=== PATIENT | female | born 1980 | race American Indian/Alaskan Native ===

== ENCOUNTER 2016-08-02 17:24 | Emergency (ER) | payer MEDICAID ==
[2016-08-02 18:04] LABS: Basophils % (Auto) 0.7 % (0.0-1.8); Eosinophils % (Auto) 1.2 % (0.0-4.3); Hematocrit 40.8 % (30.3-42.9); Hemoglobin 13.5 gm/dl (10.1-14.3); Mean Corpuscular HGB Conc 33 % (30-34); Mean Corpuscular Hemoglobin 28 pg (28-32); Mean Corpuscular Volume 85 fl (79-97); Platelet Count 181 K/mm3 (140-440); Red Blood Count 4.78 M/mm3 (3.65-5.03); Red Cell Distribution Width 14.1 % (13.2-15.2); White Blood Count 7.9 K/mm3 (4.5-11.0)
[2016-08-02 18:21] LABS: Alanine Aminotransferase 10 units/L (7-56); Albumin 3.8 g/dL (3.9-5); Albumin/Globulin Ratio 0.9 %; Alkaline Phosphatase 65 units/L (35-129); Anion Gap 21 mmol/L; BUN/Creatinine Ratio 15.71; Blood Urea Nitrogen 11 mg/dL (7-17); Calcium 9.2 mg/dL (8.4-10.2); Carbon Dioxide 18 mmol/L (22-30); Chloride 100.3 mmol/L (98-107); Glucose 93 mg/dL (65-100); Lipase 30 units/L (13-60); Potassium 3.6 mmol/L (3.6-5.0); Sodium 136 mmol/L (137-145); Total Protein 8.2 g/dL (6.3-8.2)
[2016-08-02 18:33] LABS: Bacteria,Urine 1+ /HPF (Negative); Bilirubin,Urine NEG (Negative); Blood,Urine NEG (Negative); Ketones,Urine 20 mg/dL (Negative); Leukocyte Esterase,Urine NEG (Negative); Mucus,Urine 2+ /HPF; Nitrite,Urine NEG (Negative)
[2016-08-02 18:39] LABS: Protein,Urine >500 mg/dL (Negative)
[2016-08-02] MEDS ORDERED: ZOFRAN IV ONE (21:13)
[2016-08-02] MEDS ORDERED: TORADOL IV ONE (21:13)
--- NOTE | 2016-08-02 21:34 | Emergency Department Report ---
ED Abdominal Pain HPI - General Chief Complaint: Abdominal Pain Stated Complaint: STOMACH PAIN/BACK PAIN Time Seen by Provider: 08/02/16 20:59 Source: patient Mode of arrival: Ambulatory Limitations: No Limitations - History of Present Illness Initial Comments: 36-year-old female with a past medical history hypertension and previous C- section presents to the hospital complaining of lower abdominal pain and mid back pain intermittently 2 weeks. Patient expresses concern that she might be . She has had intermittent lower abdominal pain described as sharp in nature, intermittent, rated a 4/10 intensity. Worse on the left sided worse with palpation. No alleviating factors reported. Patient also states she is having daily nausea vomiting with difficulty tolerating food intake. She is able tolerate liquids. Patient also has mid back pain is worse with movement. No reports of fever, diarrhea, melena, hematochezia, dysuria, vaginal discharge. Patient sexually active one partner 5 years and does not use condoms. She has an appointment with her MUSIC COORDINATOR doctor scheduled for this Wednesday the . - Related Data Previous Rx's Medication Instructions Recorded Last Taken Type HYDROcodone/APAP 5-325 [[place] 1 each PO Q6HR PRN #14 tablet 09/09/13 Unknown Rx 5/325] Ibuprofen [Motrin 800 MG tab] 800 mg PO Q8H #30 tablet 09/09/13 Unknown Rx Acetaminophen/Codeine 1 tab PO Q6H PRN #25 tab 03/26/14 Unknown Rx [Acetaminophen-Codeine #3 TAB] Amoxicillin [Amoxicillin TAB] 875 mg PO BID #20 tablet 11/02/15 Unknown Rx predniSONE [Deltasone] 50 mg PO QAM #5 tablet 11/02/15 Unknown Rx Ibuprofen [Motrin] 800 mg PO Q8HR PRN #30 tablet 08/02/16 Unknown Rx Ondansetron [Zofran Odt] 4 mg PO Q8HR PRN #20 tab.rapdis 08/02/16 Unknown Rx traMADol [Ultram 50 MG tab] 50 mg PO Q6HR PRN #20 tablet 08/02/16 Unknown Rx Allergies Allergy/AdvReac Type Severity Reaction Status Date / Time No Known Allergies Allergy Unverified 04/24/13 09:19 ED Review of Systems ROS: Stated complaint: STOMACH PAIN/BACK PAIN Other details as noted in HPI Comment: All other systems reviewed and negative Other: Constitutional: No fevers chills Eyes: No eye pain visual changes ENT: No ear pain or throat pain Neck: Denies pain Respiratory: Denies cough wheezing shortness of breath Cardiovascular: Denies chest pain, palpitations, syncope GI: as per hpi : Denies dysuria Musculoskeletal: as per hpi Skin: Denies rash, lesions, erythema Neurologic: Denies headache, numbness, weakness Psychiatric: Denies suicidal ideation, hallucinations ED Past Medical Hx - Past Medical History Previous Medical History?: Yes Hx Hypertension: Yes - Surgical History Past Surgical History?: Yes Additional Surgical History: - Social History Smoking Status: Current Every Day Smoker - Medications Home Medications: Home Medications Medication Instructions Recorded Confirmed Last Taken Type HYDROcodone/APAP 5-325 [[place] 1 each PO Q6HR PRN #14 tablet 09/09/13 Unknown Rx 5/325] Ibuprofen [Motrin 800 MG tab] 800 mg PO Q8H #30 tablet 09/09/13 Unknown Rx Acetaminophen/Codeine 1 tab PO Q6H PRN #25 tab 03/26/14 Unknown Rx [Acetaminophen-Codeine #3 TAB] Amoxicillin [Amoxicillin TAB] 875 mg PO BID #20 tablet 11/02/15 Unknown Rx predniSONE [Deltasone] 50 mg PO QAM #5 tablet 11/02/15 Unknown Rx Ibuprofen [Motrin] 800 mg PO Q8HR PRN #30 tablet 08/02/16 Unknown Rx Ondansetron [Zofran Odt] 4 mg PO Q8HR PRN #20 tab.rapdis 08/02/16 Unknown Rx traMADol [Ultram 50 MG tab] 50 mg PO Q6HR PRN #20 tablet 08/02/16 Unknown Rx ED Physical Exam - General Limitations: No Limitations - Other Other exam information: General: No limitations, patient is alert in no acute distress Head exam: Atraumatic, normocephalic Eyes exam: Normal appearance, pupils equal reactive to light, extraocular movements intact ENT: Moist mucous membrane, normal oropharynx Neck exam: Normal inspection, full range of motion, no meningismus nontender Respiratory exam: Clear to auscultation bilateral, no wheezes, rales, crackles Cardiovascular: Normal rate and rhythm, normal heart sounds Abdomen: Soft, nondistended, and mild llq tenderness , with normal bowel sounds , no rebound, or guarding Extremity: Full range of motion normal inspection no deformity Back: Normal Inspection, full range of motion, tenderness to b/l lower paraspinal muscles and left post thoracic area Neurologic: Alert, oriented x3, cranial nerves intact, no motor or sensory deficit Psychiatric: normal affect, normal mood Skin: Warm, dry, intact ED Course Vital Signs 08/02/16 17:29 Temperature 98.8 F Pulse Rate 79 Respiratory 20 Rate Blood Pressure 141/81 O2 Sat by Pulse 100 Oximetry - Reevaluation(s) Reevaluation #1: 08/02/16 21:33 Offered to perform a vaginal exam on patient. She initially agreed but then changed her mind stating she would use goes to her MUSIC COORDINATOR as scheduled this Wednesday. Also offered pain and nausea medication due to IV since she has one in herhand. Patient initially agreed but then when nurse tried to get the medication stating she did not want any medication and just wants to go home. Patient also refused IV hydration and states she will eat and drink when she gets home ED Medical Decision Making - Lab Data Result diagrams: 08/02/16 17:38 08/02/16 17:38 Lab Results 08/02/16 08/02/16 08/02/16 Range/Units 17:38 17:38 17:38 WBC 7.9 (4.5-11.0) K/mm3 RBC 4.78 (3.65-5.03) M/mm3 Hgb 13.5 (10.1-14.3) gm/dl Hct 40.8 (30.3-42.9) % MCV 85 (79-97) fl MCH 28 (28-32) pg MCHC 33 (30-34) % RDW 14.1 (13.2-15.2) % Plt Count 181 (140-440) K/mm3 Lymph % (Auto) 37.3 H (13.4-35.0) % [place] % (Auto) 5.4 (0.0-7.3) % Eos % (Auto) 1.2 (0.0-4.3) % Baso % (Auto) 0.7 (0.0-1.8) % Lymph # 2.9 (1.2-5.4) K/mm3 [place] # 0.4 (0.0-0.8) K/mm3 Eos # 0.1 (0.0-0.4) K/mm3 Baso # 0.1 (0.0-0.1) K/mm3 Seg Neutrophils % 55.4 (40.0-70.0) % Seg Neutrophils # 4.4 (1.8-7.7) K/mm3 Sodium 136 L (137-145) mmol/L Potassium 3.6 (3.6-5.0) mmol/L Chloride 100.3 (98-107) mmol/L Carbon Dioxide 18 L (22-30) mmol/L Anion Gap 21 mmol/L BUN 11 (7-17) mg/dL Creatinine 0.7 (0.7-1.2) mg/dL Estimated GFR > 60 ml/min BUN/Creatinine Ratio 15.71 % Glucose 93 (65-100) mg/dL Calcium 9.2 (8.4-10.2) mg/dL Total Bilirubin 0.80 (0.1-1.2) mg/dL AST 15 (5-40) units/L ALT 10 (7-56) units/L Alkaline Phosphatase 65 (35-129) units/L Total Protein 8.2 (6.3-8.2) g/dL Albumin 3.8 L (3.9-5) g/dL Albumin/Globulin Ratio 0.9 % Lipase 30 (13-60) units/L HCG, Quant < 2 (0-4) mIU/mL Urine Color (Yellow) Urine Turbidity (Clear) Urine pH (5.0-7.0) Ur Specific [employer] (1.003-1.030) Urine Protein (Negative) mg/dL Urine Glucose (UA) (Negative) mg/dL Urine Ketones (Negative) mg/dL Urine Blood (Negative) Urine Nitrite (Negative) Urine Bilirubin (Negative) Urine Urobilinogen (<2.0) mg/dL Ur Leukocyte Esterase (Negative) Urine WBC (Auto) (0.0-6.0) /HPF Urine RBC (Auto) (0.0-6.0) /HPF U Epithel Cells (Auto) (0-13.0) /HPF Urine Bacteria (Auto) (Negative) /HPF Urine Mucus /HPF Urine HCG, Qual (Negative) 08/02/16 Range/Units 17:52 WBC (4.5-11.0) K/mm3 RBC (3.65-5.03) M/mm3 Hgb (10.1-14.3) gm/dl Hct (30.3-42.9) % MCV (79-97) fl MCH (28-32) pg MCHC (30-34) % RDW (13.2-15.2) % Plt Count (140-440) K/mm3 Lymph % (Auto) (13.4-35.0) % [place] % (Auto) (0.0-7.3) % Eos % (Auto) (0.0-4.3) % Baso % (Auto) (0.0-1.8) % Lymph # (1.2-5.4) K/mm3 [place] # (0.0-0.8) K/mm3 Eos # (0.0-0.4) K/mm3 Baso # (0.0-0.1) K/mm3 Seg Neutrophils % (40.0-70.0) % Seg Neutrophils # (1.8-7.7) K/mm3 Sodium (137-145) mmol/L Potassium (3.6-5.0) mmol/L Chloride (98-107) mmol/L Carbon Dioxide (22-30) mmol/L Anion Gap mmol/L BUN (7-17) mg/dL Creatinine (0.7-1.2) mg/dL Estimated GFR ml/min BUN/Creatinine Ratio % Glucose (65-100) mg/dL Calcium (8.4-10.2) mg/dL Total Bilirubin (0.1-1.2) mg/dL AST (5-40) units/L ALT (7-56) units/L Alkaline Phosphatase (35-129) units/L Total Protein (6.3-8.2) g/dL Albumin (3.9-5) g/dL Albumin/Globulin Ratio % Lipase (13-60) units/L HCG, Quant (0-4) mIU/mL Urine Color [place] (Yellow) Urine Turbidity Clear (Clear) Urine pH 5.0 (5.0-7.0) Ur Specific [employer] 1.031 H (1.003-1.030) Urine Protein >500 (Negative) mg/dL Urine Glucose (UA) Neg (Negative) mg/dL Urine Ketones 20 (Negative) mg/dL Urine Blood Neg (Negative) Urine Nitrite Neg (Negative) Urine Bilirubin Neg (Negative) Urine Urobilinogen 2.0 (<2.0) mg/dL Ur Leukocyte Esterase Neg (Negative) Urine WBC (Auto) 2.0 (0.0-6.0) /HPF Urine RBC (Auto) 6.0 (0.0-6.0) /HPF U Epithel Cells (Auto) 14.0 H (0-13.0) /HPF Urine Bacteria (Auto) 1+ (Negative) /HPF Urine Mucus 2+ /HPF Urine HCG, Qual Negative (Negative) - Medical Decision Making Patient has no significant lab abnormalities exception of sodium low bicarbonate secondary to dehydration given her elevated ketones in the urine and high specific gravity. Patient declined offer for IV hydration. She declined offer for pelvic exam, nausea medication, and pain medication prior to discharge. Patient has an appointment this Wednesday in 2 days with her MUSIC COORDINATOR and she was encouraged to follow-up with her MUSIC COORDINATOR doctor. She is provided a copy of her laboratory findings today to take to her physician for follow-up - Differential Diagnosis , ovarian cyst, vaginitis, cervicitis, UTI, renal colic Critical Care Time: No Critical care attestation.: If time is entered above; I have spent that time in minutes in the direct care of this critically ill patient, excluding procedure time. ED Disposition Clinical Impression: Pelvic pain, Nausea and vomiting, Dehydration Disposition: DISCHARGED TO HOME OR SELFCARE Is pt being admited?: No Does the pt Need Aspirin: No Condition: Stable Instructions: Acute Nausea and Vomiting (ED), Abdominal Pain (ED) Additional Instructions: Take the medication as prescribed. Follow-up with his doctor as scheduled this Wednesday for further pelvic examination. Return if symptoms worsen. Prescriptions: Ibuprofen [Motrin] 800 mg PO Q8HR PRN #30 tablet PRN Reason: Pain Ondansetron [Zofran Odt] 4 mg PO Q8HR PRN #20 tab.rapdis PRN Reason: Nausea And Vomiting traMADol [Ultram 50 MG tab] 50 mg PO Q6HR PRN #20 tablet PRN Reason: Pain Referrals: KASSI IYER MD [Primary Care Provider] - 3-5 Days your, statistics intern [Other] - 08/05/16 (as scheduled) Time of Disposition: 21:37
[2016-08-02 21:47] VITALS: BP 133/75
== END 2016-08-02 21:47 | disposition home or self-care (01) ==
LOC: ED 17:24
DX: R10.2 Pelvic and perineal pain (principal); R11.2 Nausea with vomiting, unspecified; E86.0 Dehydration; I10 Essential (primary) hypertension; F17.200 Nicotine dependence, unspecified, uncomplicated
CPT/HCPCS: 36415; 80053; 81001; 81025; 83690; 84702; 85025; 99283

== ENCOUNTER 2016-09-15 03:39 | Emergency (ER) | payer MEDICAID ==
[2016-09-15 04:34] VITALS: BP 124/63
[2016-09-15 05:24] LABS: Basophils % (Auto) 0.4 % (0.0-1.8); Eosinophils % (Auto) 0.9 % (0.0-4.3); Hematocrit 37.6 % (30.3-42.9); Hemoglobin 12.5 gm/dl (10.1-14.3); Mean Corpuscular HGB Conc 33 % (30-34); Mean Corpuscular Hemoglobin 29 pg (28-32); Mean Corpuscular Volume 86 fl (79-97); Platelet Count 200 K/mm3 (140-440); Red Blood Count 4.37 M/mm3 (3.65-5.03); Red Cell Distribution Width 14.1 % (13.2-15.2); White Blood Count 9.6 K/mm3 (4.5-11.0)
[2016-09-15 05:36] LABS: Alanine Aminotransferase 8 units/L (7-56); Albumin 3.5 g/dL (3.9-5); Albumin/Globulin Ratio 0.9 %; Alkaline Phosphatase 57 units/L (35-129); Anion Gap 18 mmol/L; BUN/Creatinine Ratio 17.14; Blood Urea Nitrogen 12 mg/dL (7-17); Calcium 9.5 mg/dL (8.4-10.2); Carbon Dioxide 20 mmol/L (22-30); Chloride 99.2 mmol/L (98-107); Glucose 102 mg/dL (65-100); Lipase 28 units/L (13-60); Potassium 4.2 mmol/L (3.6-5.0); Sodium 133 mmol/L (137-145); Total Protein 7.6 g/dL (6.3-8.2)
--- NOTE | 2016-09-15 08:21 | Ultrasound Report ---
ULTRASOUND OB LESS THAN 14 WEEKS ULTRASOUND OB TRANSVAGINAL HISTORY: Abdominal pain during , positive urine test. TECHNIQUE: Transabdominal and transvaginal ultrasound with doppler interrogation. No comparison. The uterus measures 10 x 6 x 6 cm. No uterine masses appreciated. The endometrial stripe measures 1.3 cm. A small gestational sac is suspected in the uterine fundus region with average diameter measuring 9.5 mm. This correlates with a 5 week, 5 day . Estimated due date is May 13, 2017. No convincing pole or yolk sac or heart tones are detected at this time. The right ovary measures 3.7 x 1.5 x 2.6 cm. The left ovary measures 2.7 x 1.5 x 1.9 cm. No adnexal cyst or mass. No pelvic fluid collection. IMPRESSION: Probable early normal intrauterine as outlined above. No acute abnormality is appreciated. Followup is recommended.
[2016-09-15 09:16] LABS: Bilirubin,Urine NEG (Negative); Blood,Urine NEG (Negative); Ketones,Urine NEG (Negative); Leukocyte Esterase,Urine NEG (Negative); Mucus,Urine FEW /HPF; Nitrite,Urine NEG (Negative); Urobilinogen,Urine < 2.0 mg/dL (<2.0); WBC,Urine < 1.0 /HPF (0.0-6.0)
--- NOTE | 2016-09-17 01:22 | ED Elopement Review ---
ED Pt Elopement review - Results review Lab results: Laboratory Tests 09/15/16 09/15/16 09/15/16 04:42 04:42 04:42 WBC 9.6 RBC 4.37 Hgb 12.5 Hct 37.6 MCV 86 MCH 29 MCHC 33 RDW 14.1 Plt Count 200 Lymph % (Auto) 44.3 H [place] % (Auto) 5.5 Eos % (Auto) 0.9 Baso % (Auto) 0.4 Lymph # 4.3 [place] # 0.5 Eos # 0.1 Baso # 0.0 Seg Neutrophils % 48.9 Seg Neutrophils # 4.7 Sodium 133 L Potassium 4.2 Chloride 99.2 Carbon Dioxide 20 L Anion Gap 18 BUN 12 Creatinine 0.7 Estimated GFR > 60 BUN/Creatinine Ratio 17.14 Glucose 102 H Calcium 9.5 Total Bilirubin 0.30 AST 12 ALT 8 Alkaline Phosphatase 57 Total Protein 7.6 Albumin 3.5 L Albumin/Globulin Ratio 0.9 Lipase 28 HCG, Qual Positive HCG, Quant Urine Color Urine Turbidity Urine pH Ur Specific [place] Urine Protein Urine Glucose (UA) Urine Ketones Urine Blood Urine Nitrite Urine Bilirubin Urine Urobilinogen Ur Leukocyte Esterase Urine WBC (Auto) Urine RBC (Auto) U Epithel Cells (Auto) Urine Mucus 09/15/16 09/15/16 04:42 08:11 WBC RBC Hgb Hct MCV MCH MCHC RDW Plt Count Lymph % (Auto) [place] % (Auto) Eos % (Auto) Baso % (Auto) Lymph # [place] # Eos # Baso # Seg Neutrophils % Seg Neutrophils # Sodium Potassium Chloride Carbon Dioxide Anion Gap BUN Creatinine Estimated GFR BUN/Creatinine Ratio Glucose Calcium Total Bilirubin AST ALT Alkaline Phosphatase Total Protein Albumin Albumin/Globulin Ratio Lipase HCG, Qual HCG, Quant 5000 H Urine Color Yellow Urine Turbidity Clear Urine pH 6.0 Ur Specific [place] 1.017 Urine Protein 100 mg/dl Urine Glucose (UA) Neg Urine Ketones Neg Urine Blood Neg Urine Nitrite Neg Urine Bilirubin Neg Urine Urobilinogen < 2.0 Ur Leukocyte Esterase Neg Urine WBC (Auto) < 1.0 Urine RBC (Auto) 1.0 U Epithel Cells (Auto) 1.0 Urine Mucus Few - Call Back decision Pt Call Back Decision: Pt to F/U with PMD (patient is , and needs to follow-up with an DIVING JUDGE doctor to start/initiate care.)
== END 2016-09-15 09:38 | disposition left against medical advice (07) ==
LOC: ED 03:39
DX: O26.891 Other specified pregnancy related conditions, first trimester (principal); R10.2 Pelvic and perineal pain; Z53.21 Procedure and treatment not carried out due to patient leaving prior to being seen by health care provider; Z3A.01 Less than 8 weeks gestation of pregnancy
CPT/HCPCS: 36415; 76801; 76817; 80053; 81001; 83690; 84702; 84703; 85025

== ENCOUNTER 2017-07-26 11:08 | Emergency (ER) | payer MEDICAID ==
[2017-07-26 11:56] VITALS: BP 129/87
[2017-07-26 12:45] LABS: Bilirubin,Urine NEG (Negative); Blood,Urine NEG (Negative); Color,Urine Yellow (Yellow); Mucus,Urine FEW /HPF; Urobilinogen,Urine < 2.0 mg/dL (<2.0)
[2017-07-26 12:48] LABS: HCG Qualitative,Urine Negative (Negative); Protein,Urine >500 mg/dL (Negative)
[2017-07-26 12:50] LABS: Basophils % (Auto) 0.6 % (0.0-1.8); Eosinophils % (Auto) 0.4 % (0.0-4.3); Hematocrit 38.8 % (30.3-42.9); Hemoglobin 13.6 gm/dl (10.1-14.3); Lymphocytes # (Auto) 3.1 K/mm3 (1.2-5.4); Lymphocytes % (Auto) 42.4 % (13.4-35.0); Mean Corpuscular HGB Conc 35 % (30-34); Mean Corpuscular Hemoglobin 29 pg (28-32); Mean Corpuscular Volume 83 fl (79-97); Monocytes # (Auto) 0.4 K/mm3 (0.0-0.8); Platelet Count 208 K/mm3 (140-440)
--- NOTE | 2017-07-26 13:00 | Emergency Department Report ---
Blank Doc - Documentation Documentation: 37-year-old female with past surgical history of 2 and tubal ligation presents to the hospital with abdominal pain 1 day. Patient states that she has pain in the upper bilateral part of her abdomen which feels like getting punched repeatedly in the stomach. Worsening palpation. No relieving factors. Patient denies nausea, vomiting, fever, dysuria, melena, hematochezia , or hematuria. Denies previous episodes of similar pain in the past. Exam: lungs cta cv: rrr abd: generalized tenderness greatest at ruq, rlq labs pending ct abd/IV contrast order meds for pain korin lepe midlevel to follow
[2017-07-26] MEDS ORDERED: ZOFRAN ODT PO ONE (13:01)
[2017-07-26] MEDS ORDERED: NORCO 5/325 PO ONE (13:01)
--- NOTE | 2017-07-26 13:02 | Emergency Department Report ---
ED Abdominal Pain HPI - General Chief Complaint: Abdominal Pain Stated Complaint: STOMACH PAIN Time Seen by Provider: 07/26/17 12:51 Source: patient, family Mode of arrival: Ambulatory Limitations: No Limitations - History of Present Illness Initial Comments: 37-year-old female with past surgical history of 2 and tubal ligation presents to the hospital with abdominal pain 1 day. Patient states that she has pain in the upper bilateral part of her abdomen which feels like getting punched repeatedly in the stomach. Worsening palpation. No relieving factors. Patient denies nausea, vomiting, fever, dysuria, melena, hematochezia , or hematuria. Denies previous episodes of similar pain in the past. MD Complaint: abdominal pain -: This morning Location: LUQ, RUQ Radiation: none Migration to: no migration Severity: moderate Severity scale (0 -10): 5 Quality: stabbing Consistency: constant Improves With: nothing Worsens With: other (palpation) Context: other (unknown) Associated Symptoms: denies: nausea, vomiting, diarrhea, fever, chills, constipation, dysuria, hematemesis, hematochezia, melena, hematuria, anorexia, syncope - Related Data LMP (females 10-50): other (2017) Home Medications Medication Instructions Recorded Confirmed Last Taken Pnv No.95/Ferrous Fum/Folic AC 1 tab PO QDAY 04/30/17 04/30/17 04/29/17 09:00 [ Vitamins Tablet] Previous Rx's Medication Instructions Recorded Last Taken Type HYDROcodone/APAP 5-325 [[place] 1 each PO Q6HR PRN #14 tablet 09/09/13 Unknown Rx 5/325] Naproxen 500 mg PO Q12H PRN #12 tablet 07/26/17 Unknown Rx Ondansetron [Zofran ODT TAB] 4 mg PO Q8HR PRN #12 tab.rapdis 07/26/17 Unknown Rx Allergies Allergy/AdvReac Type Severity Reaction Status Date / Time No Known Allergies Allergy Unverified 04/24/13 09:19 ED Review of Systems ROS: Stated complaint: STOMACH PAIN Other details as noted in HPI Constitutional: denies: chills, fever, weakness Eyes: denies: eye pain, eye discharge, vision change ENT: denies: ear pain, throat pain, congestion Respiratory: denies: cough, shortness of breath, SOB with exertion, SOB at rest , stridor, wheezing Cardiovascular: denies: chest pain, palpitations, edema, syncope, paroxysmal nocturnal dyspnea Gastrointestinal: abdominal pain. denies: nausea, vomiting, diarrhea, constipation, hematemesis, melena, hematochezia Genitourinary: denies: urgency, dysuria, discharge Musculoskeletal: denies: back pain, joint swelling, arthralgia Skin: denies: rash, lesions Neurological: denies: headache, weakness, numbness, paresthesias, confusion, abnormal gait, vertigo ED Past Medical Hx - Past Medical History Previous Medical History?: Yes Hx Hypertension: No Hx Congestive Heart Failure: No Hx Diabetes: No Hx Deep Vein Thrombosis: No Hx Renal Disease: No Hx Sickle Cell Disease: No Hx Seizures: No Hx Asthma: Yes Hx COPD: No Hx HIV: No Additional medical history: stillbirth - Surgical History Past Surgical History?: Yes Additional Surgical History: x 2, Tubaligation - Family History Family history: hypertension - Social History Smoking Status: Current Every Day Smoker Substance Use Type: Alcohol Other Social History: and lives his family - Medications Home Medications: Home Medications Medication Instructions Recorded Confirmed Last Taken Type HYDROcodone/APAP 5-325 [[place] 1 each PO Q6HR PRN #14 tablet 09/09/13 04/30/17 Unknown Rx 5/325] Pnv No.95/Ferrous Fum/Folic AC 1 tab PO QDAY 04/30/17 04/30/17 04/29/17 09:00 History [ Vitamins Tablet] Naproxen 500 mg PO Q12H PRN #12 tablet 07/26/17 Unknown Rx Ondansetron [Zofran ODT TAB] 4 mg PO Q8HR PRN #12 tab.rapdis 07/26/17 Unknown Rx ED Physical Exam - General General appearance: alert, in no apparent distress - Head Head exam: Present: atraumatic, normocephalic, normal inspection - Eye Eye exam: Present: normal appearance, PERRL, EOMI Pupils: Present: normal accommodation - ENT ENT exam: Present: normal exam, normal orophraynx, mucous membranes moist - Neck Neck exam: Present: normal inspection, full ROM, other (no C-spine tenderness). Absent: tenderness, lymphadenopathy - Respiratory Respiratory exam: Present: normal lung sounds bilaterally. Absent: respiratory distress, wheezes, rales, rhonchi, stridor, chest wall tenderness, accessory muscle use, decreased breath sounds, prolonged expiratory - Cardiovascular Cardiovascular Exam: Present: regular rate, normal rhythm, normal heart sounds. Absent: systolic murmur, diastolic murmur - GI/Abdominal GI/Abdominal exam: Present: soft, tenderness (generalized), normal bowel sounds. Absent: distended, guarding, rebound, rigid, organomegaly, mass, bruit , pulsatile mass, hernia - Extremities Exam Extremities exam: Present: normal inspection, full ROM, normal capillary refill , other (no clubbing, cyanosis or edema. Pulses + extremities and no neurovascular compromise). Absent: tenderness, pedal edema, joint swelling, calf tenderness - Back Exam Back exam: Present: normal inspection, full ROM, other (ambulates without any difficulties). Absent: tenderness, CVA tenderness (R), CVA tenderness (L), muscle spasm, paraspinal tenderness, vertebral tenderness, rash noted - Neurological Exam Neurological exam: Present: alert, oriented X3, normal gait - Psychiatric Psychiatric exam: Present: normal affect, normal mood - Skin Skin exam: Present: warm, dry, intact, normal color. Absent: rash ED Course Vital Signs 07/26/17 07/26/17 11:51 14:28 Temperature 98.9 F Pulse Rate 78 Respiratory 20 20 Rate Blood Pressure 129/87 O2 Sat by Pulse 99 Oximetry - Reevaluation(s) Reevaluation #1: 07/26/17 2:10 Patient received Zofran 4 mg ODT and hydrocodone 5/325 tablet by mouth for nausea and abdominal pain. Pain has been relieved and patient has no nausea. Abdominal exam without any tenderness on palpation. Reevaluation #2: 07/26/17 15:32 Patient stable, she received 1 L of normal saline in emergency room. 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 Patient states that she feels better and ready to go. She is pain- free without any tenderness or abdomen. ED Medical Decision Making - Lab Data Result diagrams: 07/26/17 12:37 07/26/17 12:37 Lab Results 07/26/17 07/26/17 07/26/17 Range/Units 12:08 12:37 12:37 WBC 7.3 (4.5-11.0) K/mm3 RBC 4.70 (3.65-5.03) M/mm3 Hgb 13.6 (10.1-14.3) gm/dl Hct 38.8 (30.3-42.9) % MCV 83 (79-97) fl MCH 29 (28-32) pg MCHC 35 H (30-34) % RDW 14.0 (13.2-15.2) % Plt Count 208 (140-440) K/mm3 Lymph % (Auto) 42.4 H (13.4-35.0) % [place] % (Auto) 5.0 (0.0-7.3) % Eos % (Auto) 0.4 (0.0-4.3) % Baso % (Auto) 0.6 (0.0-1.8) % Lymph # 3.1 (1.2-5.4) K/mm3 [place] # 0.4 (0.0-0.8) K/mm3 Eos # 0.0 (0.0-0.4) K/mm3 Baso # 0.0 (0.0-0.1) K/mm3 Seg Neutrophils % 51.6 (40.0-70.0) % Seg Neutrophils # 3.8 (1.8-7.7) K/mm3 Sodium 136 L (137-145) mmol/L Potassium 3.9 (3.6-5.0) mmol/L Chloride 103.0 (98-107) mmol/L Carbon Dioxide 20 L (22-30) mmol/L Anion Gap 17 mmol/L BUN 11 (7-17) mg/dL Creatinine 0.6 L (0.7-1.2) mg/dL Estimated GFR > 60 ml/min BUN/Creatinine Ratio 18 % Glucose 145 H (65-100) mg/dL Calcium 9.2 (8.4-10.2) mg/dL Total Bilirubin 0.30 (0.1-1.2) mg/dL AST 13 (5-40) units/L ALT 9 (7-56) units/L Alkaline Phosphatase 78 (35-129) units/L Total Protein 7.7 (6.3-8.2) g/dL Albumin 3.5 L (3.9-5) g/dL Albumin/Globulin Ratio 0.8 % Lipase 25 (13-60) units/L Urine Color Yellow (Yellow) Urine Turbidity Clear (Clear) Urine pH 6.0 (5.0-7.0) Ur Specific [place] 1.024 (1.003-1.030) Urine Protein >500 (Negative) mg/dL Urine Glucose (UA) Neg (Negative) mg/dL Urine Ketones Neg (Negative) mg/dL Urine Blood Neg (Negative) Urine Nitrite Neg (Negative) Urine Bilirubin Neg (Negative) Urine Urobilinogen < 2.0 (<2.0) mg/dL Ur Leukocyte Esterase Neg (Negative) Urine WBC (Auto) 1.0 (0.0-6.0) /HPF Urine RBC (Auto) 1.0 (0.0-6.0) /HPF U Epithel Cells (Auto) 2.0 (0-13.0) /HPF Urine Mucus Few /HPF Urine HCG, Qual Negative (Negative) - Radiology Data Radiology results: report reviewed CT scan of abdomen and pelvis with IV contrast shows patient with no acute findings. Incidental findings for markedly diminutive and hypoplastic left kidney and compensatory hypertrophy of right kidney without other focal abnormalities. Please see detailed CT scan of the abdomen and pelvis with contrast under radiology reports. Report was reviewed. - Medical Decision Making ED course: Diagnosis 1 -abdominal pain-resolved after 1 L of normal saline, Zofran 4 mg ODT and hydrocodone 5/325 mg one tablet by mouth. CT scan of the abdomen and pelvis revealed no acute finding except incidental findings for hypoplastic left kidney right kidney compensating. Please see radiology report section for details. Laboratory findings include CBC was normal, CMP stable except she has mild decrease in sodium but she was given 1 L normal saline which should resolve this. test negative and urinalysis stable. CT scan results and laboratories results discussed with patient and she voiced understanding. I discussed with her that she needs to follow up with precipitation equipment tender and primary care physician. Patient discharged home in stable condition with her family. Prescription for naproxen and Zofran and to follow up with precipitation equipment tender and her primary care physician. She was nondistended discharge instruction, diagnosis and treatment plan. - Differential Diagnosis GBD, pancreatitis, UTI, appendicitis, colitis, enteritis, constipation Critical care attestation.: If time is entered above; I have spent that time in minutes in the direct care of this critically ill patient, excluding procedure time. ED Disposition Clinical Impression: Abdominal pain Qualifiers: Abdominal location: generalized Qualified Code(s): R10.84 - Generalized abdominal pain Disposition: DC-01 TO HOME OR SELFCARE Is pt being admited?: No Does the pt Need Aspirin: No Condition: Stable Instructions: Abdominal Pain (ED) Additional Instructions: Please follow-up with your primary care physician tomorrow status post abdominal pain. Take naproxen for pain and Zofran for nausea Increase her fluid intake You have incidental findings on your CT scan that shows that you've left kidney is smaller than the right kidney and this is more likely from . Radiology report reveals that there are no abnormality. Follow-up with gastroenterology if he continued to have abdominal pain. See referral in discharge instruction paperwork Prescriptions: Naproxen 500 mg PO Q12H PRN #12 tablet PRN Reason: abdominal pain Ondansetron [Zofran ODT TAB] 4 mg PO Q8HR PRN #12 tab.rapdis PRN Reason: Nausea And Vomiting Referrals: PRIMARY CARE [Primary Care Provider] - 07/27/17 [facility] [Provider Group] - 2-3 Days Forms: Accompanied Note, Work/School Release Form(ED)
[2017-07-26 13:07] LABS: Alanine Aminotransferase 9 units/L (7-56); Albumin 3.5 g/dL (3.9-5); BUN/Creatinine Ratio 18; Blood Urea Nitrogen 11 mg/dL (7-17); Calcium 9.2 mg/dL (8.4-10.2); Hemolysis Index 6; Lipase 25 units/L (13-60)
[2017-07-26] MEDS ORDERED: NACL 0.9% 1000 ML 1,000 ML IV ONE (13:33)
--- NOTE | 2017-07-26 14:59 | Cat Scan Report ---
FINAL REPORT EXAM: CT ABDOMEN PELVIS W CON HISTORY: ruq, rlq pain , gen pain TECHNIQUE: Spiral CT scanning of the abdomen and pelvis after the uneventful administration of IV contrast. Multiplanar reformations. 100 mL Omnipaque IV. PRIORS: None. FINDINGS: Abdomen: Visualized lung bases grossly unremarkable. No radiopaque gallstones. Liver without significant abnormality. Spleen without significant abnormality. Pancreas without significant abnormality. Markedly diminutive and hypoplastic left kidney and compensatory hypertrophy of right kidney without other focal abnormality. Adrenal glands without significant abnormality. Pelvis: Bowel evaluation limited due to lack of oral contrast administration, but grossly unremarkable. Appendix within normal limits. Trace amount of nonspecific, free fluid in the pelvis may be physiologic. No discrete abscess. Abdominal aorta non-aneurysmal. IMPRESSION: 1. No acute findings. Please see above for further details.
== END 2017-07-26 16:51 | disposition home or self-care (01) ==
LOC: ED 11:08
DX: R10.84 Generalized abdominal pain (principal); F17.200 Nicotine dependence, unspecified, uncomplicated
CPT/HCPCS: 36415; 74177; 80053; 81001; 81025; 83690; 85025; 96360; 99284; J7030; Q9967; Q0162

== ENCOUNTER 2017-10-26 19:25 | Emergency (ER) | payer MEDICAID ==
[2017-10-26 20:02] VITALS: BP 159/89
[2017-10-26] MEDS ORDERED: TYLENOL PO ONE (20:02)
[2017-10-26] MEDS ORDERED: TYLENOL ONE (20:07)
[2017-10-26 20:31] LABS: HCG Qualitative,Urine Negative (Negative)
--- NOTE | 2017-10-26 21:42 | Cat Scan Report ---
FINAL REPORT EXAM: CT HEAD/BRAIN WO CON HISTORY: headache TECHNIQUE: 2.5 millimeter axial images from the skullbase to the vertex. Comparison: None FINDINGS: There is no evidence of an acute intracranial process, intracranial hemorrhage or mass effect. The ventricles are normal size. The visualized portions of the orbits, paranasal and mastoid sinuses are unremarkable. The bony structures are unremarkable in appearance. IMPRESSION: 1. No evidence of an acute intracranial process, intracranial hemorrhage or mass effect. If there is a clinical suspicion of an acute intracranial process and if further imaging is required, MRI may be helpful.
--- NOTE | 2017-10-26 21:48 | Cat Scan Report ---
FINAL REPORT EXAM: CT CERVICAL SPINE WO CON HISTORY: headache TECHNIQUE: Axial helical imaging through the cervical spine with sagittal and coronal reformatted images obtained. Comparison: None FINDINGS: There is reversal of the normal lordotic curve of the cervical spine. The vertebral heights are maintained. There is loss of height of the disc spaces throughout the cervical spine with relative preservation of the C5-C6 disc. There is multiple level bony canal stenosis. Visualization detail the contents of the cervical canal is limited. However, there appears to be a large right paracentral disc protrusion/herniation at the C4-C5 level. This likely result in impingement on the cervical cord at this level. There is no evidence of fracture or subluxation. The paraspinous soft tissues are unremarkable. IMPRESSION: 1. Spondylitic change cervical spine with reversal of the normal lordotic curve of the cervical spine, multiple level canal stenosis and the appearance of a large right paracentral disc protrusion/herniation at the C4-C5 level. This likely result in impingement on the cervical cord at this level. If there is no clinical contraindication, MRI would be helpful for further evaluation.
--- NOTE | 2017-10-26 23:22 | Emergency Department Report ---
ED Neck Pain/Injury HPI - General Chief Complaint: Neck Pain/Injury Stated Complaint: NECK/SHOULDER PAIN Mode of arrival: Stretcher Limitations: No Limitations - History of Present Illness Initial Comments: Patient 37-year-old female, pt states she was picking up an object off the floor at home these that she brought from the ceiling fell striking her Neck and head, there was no LOC patient was immediately ambulatory they should call 911 if she felt a pop in her neck there is no numbness or tingling as a sharp burning pain 5/10 mid neck and headache there is no nausea no vomiting no visual changes no weakness or paralysis patient is ambulatory into ED at this time but steady gait Complaint: neck pain, neck injury Onset/Timin -: hour(s) Place: home Radiation: right lateral (neck) Severity: moderate Severity scale (0 -10): 5 Quality: burning, sharp Consistency: constant Improves With: other (rest ) Worsens With: none Context: direct blow Associated Symptoms: headache. denies: fever, numbness, tingling, weakness, vertigo, difficulty walking, swollen glands, difficulty swallowing, nausea, vomiting Treatments Prior to Arrival: none - Related Data Home Medications Medication Instructions Recorded Confirmed Last Taken Pnv No.95/Ferrous Fum/Folic AC 1 tab PO QDAY 04/30/17 04/30/17 04/29/17 09:00 [ Vitamins Tablet] Previous Rx's Medication Instructions Recorded Last Taken Type HYDROcodone/APAP 5-325 [[place] 1 each PO Q6HR PRN #14 tablet 09/09/13 Unknown Rx 5/325] Naproxen 500 mg PO Q12H PRN #12 tablet 07/26/17 Unknown Rx Ondansetron [Zofran ODT TAB] 4 mg PO Q8HR PRN #12 tab.rapdis 07/26/17 Unknown Rx Acetaminophen/Codeine [Tylenol 1 tab PO Q6H PRN #15 tab 10/26/17 Unknown Rx /Codeine # 3 tab] Cyclobenzaprine [Flexeril] 10 mg PO TID PRN #30 tablet 10/26/17 Unknown Rx Naproxen [Naprosyn TAB] 500 mg PO BID PRN #30 tablet 10/26/17 Unknown Rx Allergies Allergy/AdvReac Type Severity Reaction Status Date / Time No Known Allergies Allergy Unverified 04/24/13 09:19 ED Review of Systems ROS: Stated complaint: NECK/SHOULDER PAIN Other details as noted in HPI Constitutional: denies: chills, fever Eyes: denies: eye pain, eye discharge, vision change ENT: denies: ear pain, throat pain Respiratory: denies: cough, shortness of breath, wheezing Cardiovascular: denies: chest pain, palpitations Endocrine: no symptoms reported Gastrointestinal: denies: abdominal pain, nausea, diarrhea Genitourinary: denies: urgency, dysuria, discharge Musculoskeletal: myalgia Skin: denies: rash, lesions Neurological: headache. denies: weakness, numbness, paresthesias, confusion, abnormal gait, vertigo Psychiatric: denies: anxiety, depression Hematological/Lymphatic: denies: easy bleeding, easy bruising ED Past Medical Hx - Past Medical History Hx Hypertension: No Hx Congestive Heart Failure: No Hx Diabetes: No Hx Deep Vein Thrombosis: No Hx Renal Disease: No Hx Sickle Cell Disease: No Hx Seizures: No Hx Asthma: Yes Hx COPD: No Hx HIV: No Additional medical history: stillbirth - Surgical History Additional Surgical History: x 2, Tubal Ligation - Social History Smoking Status: Current Every Day Smoker Substance Use Type: None - Medications Home Medications: Home Medications Medication Instructions Recorded Confirmed Last Taken Type HYDROcodone/APAP 5-325 [[place] 1 each PO Q6HR PRN #14 tablet 09/09/13 04/30/17 Unknown Rx 5/325] Pnv No.95/Ferrous Fum/Folic AC 1 tab PO QDAY 04/30/17 04/30/17 04/29/17 09:00 History [ Vitamins Tablet] Naproxen 500 mg PO Q12H PRN #12 tablet 07/26/17 Unknown Rx Ondansetron [Zofran ODT TAB] 4 mg PO Q8HR PRN #12 tab.rapdis 07/26/17 Unknown Rx Acetaminophen/Codeine [Tylenol 1 tab PO Q6H PRN #15 tab 10/26/17 Unknown Rx /Codeine # 3 tab] Cyclobenzaprine [Flexeril] 10 mg PO TID PRN #30 tablet 10/26/17 Unknown Rx Naproxen [Naprosyn TAB] 500 mg PO BID PRN #30 tablet 10/26/17 Unknown Rx ED Physical Exam - General Limitations: No Limitations General appearance: alert, in no apparent distress - Head Head exam: Present: atraumatic, normocephalic, normal inspection - Expanded Head Exam Expanded Head exam: Absent: laceration, abrasion, contusion, hematoma, racoon eyes, solano's sign, general tenderness, tenderness of temporal artery, CSF rhinorrhea , CSF otorrhea - Eye Eye exam: Present: normal appearance, PERRL, EOMI. Absent: periorbital swelling , periorbital tenderness Pupils: Present: normal accommodation - ENT ENT exam: Present: normal exam, normal orophraynx, mucous membranes moist, TM's normal bilaterally - Expanded ENT Exam Expanded Ear exam: Present: normal external inspection Mouth exam: Present: normal external inspection Teeth exam: Present: normal inspection Throat exam: Positive: normal inspection - Neck Neck exam: Present: tenderness (right posterior lateral neck tenderness no swelling ecchymosis deformity no crepitus no rom restricted by pain ). Absent: full ROM, lymphadenopathy, thyromegaly - Expanded Neck Exam Expanded Neck exam: Present: tenderness. Absent: midline deformity, anterior neck swelling, thyroid mass, carotid bruit - Respiratory Respiratory exam: Present: normal lung sounds bilaterally. Absent: respiratory distress, wheezes, stridor, chest wall tenderness - Cardiovascular Cardiovascular Exam: Present: regular rate, normal rhythm, normal heart sounds. Absent: systolic murmur, diastolic murmur, rubs, gallop - GI/Abdominal GI/Abdominal exam: Present: soft, normal bowel sounds. Absent: tenderness, bruit, hernia - Rectal Rectal exam: Present: deferred - Extremities Exam Extremities exam: Present: normal inspection, full ROM, normal capillary refill. Absent: tenderness, pedal edema, joint swelling, calf tenderness - Back Exam Back exam: Present: normal inspection, full ROM. Absent: tenderness, CVA tenderness (R), CVA tenderness (L), muscle spasm, paraspinal tenderness, vertebral tenderness, rash noted - Neurological Exam Neurological exam: Present: alert, oriented X3, CN II-XII intact, normal gait, reflexes normal. Absent: motor sensory deficit - Expanded Neurological Exam Expanded Patient oriented to: Present: person, place, time Speech: Present: fluid speech Cranial nerves: EOM's Intact: Normal, Gag Reflex: Normal, Tongue Deviation: Normal, Nystagmus: Normal, Facial Sensation: Normal, Facial Palsy with Forehead Movement: Normal, Facial Palsy without Forehead Movement: Normal Cerebellar function: Finger to Nose: Normal, Heel to Crocker: Normal, Romberg: Normal Upper motor neuron: Dylon Neglect: Normal, Pronator Drift: Normal, Babinski Sign : Normal, Sensory Extinction: Normal Sensory exam: Upper Extremity Light Touch: Normal, Upper Extremity Pin Prick: Normal, Upper Extremity Temperature: Normal, UE 2 Point Discrimination: Normal, Lower Extremity Light Touch: Normal, Lower Extremity Pin Prick: Normal, Lower Extremity Temperature: Normal, LE 2 Point Discrimination: Normal Motor strength exam: RUE: 5, LUE: 5, RLE: 5, LLE: 5 DTR: bicep (R): 2+, bicep (L): 2+, tricep (R): 2+, tricep (L): 2+, knee (R): 2+ , knee (L): 2+, ankle (R): 2+, ankle (L): 2+ Best Eye Response ([place]ub[place]ber): (4) open spontaneously Best Motor Response ([place]ub[place]): (6) obeys commands Best Verbal Response ([place]): (5) oriented [place] Total: 15 - Psychiatric Psychiatric exam: Present: normal affect, normal mood - Skin Skin exam: Present: warm, dry, intact, normal color. Absent: rash ED Course Vital Signs 10/26/17 19:56 Temperature 98.2 F Pulse Rate 98 H Respiratory 16 Rate Blood Pressure 159/89 O2 Sat by Pulse 99 Oximetry ED Medical Decision Making - Lab Data Laboratory Tests 10/26/17 20:15 Urine HCG, Qual Negative - Radiology Data Radiology results: report reviewed, image reviewed CT cervical spine is mildly lytic changes in the cervical spine with reversal of normal lordotic curve of the cervical spine multiple levels of canal stenosis and a large at C4/5 level which could result in impingement CT head is no evidence of acute intracranial process intracranial hemorrhage or mass effect - Medical Decision Making Consulted ED attending on CT scans recommendation if no neuro symptoms DC'd home with C collar follow-up with orthopedic surgery NSAIDs and muscle relaxants for pain and spasm per recommendation nerve exam is intact there's no numbness no tingling tingling or weakness no paralysis no decreased sensation but decrease in bowel or bladder function patient is able to a steady gait patient states pain is muscular only with movement C collar is intact there is no deformity no ecchymosis or step-off no crepitus phonation is normal there is no sinus or blood dizziness no lightheadedness or shortness of breath patient will follow-up with orthopedic in 2-3 days naproxen Flexeril for pain spasms Tylenol No. 3 for breakthrough pain patient for patient will return to ED if symptoms should worsen patient verbalizes understanding and agreement with saline . The DC'd home in stable condition at this time patient is currently a and O times 3M [place] gait is steady with no acute distress Critical care attestation.: If time is entered above; I have spent that time in minutes in the direct care of this critically ill patient, excluding procedure time. ED Disposition Clinical Impression: Cervical disc herniation Neck muscle strain Qualifiers: Encounter type: initial encounter Qualified Code(s): S16.1XXA - Strain of muscle, fascia and tendon at neck level, initial encounter Cervical spondylosis Qualifiers: Spinal osteoarthritis complication: without myelopathy or radiculopathy Qualified Code(s): M47.812 - Spondylosis without myelopathy or radiculopathy, cervical region Disposition: DC-01 TO HOME OR SELFCARE Is pt being admited?: No Does the pt Need Aspirin: No Condition: Good Instructions: Cervical Spine Strain (ED), Degenerative Disc Disease (ED), Cervical Spinal Stenosis (ED) Prescriptions: Acetaminophen/Codeine [Tylenol /Codeine # 3 tab] 1 tab PO Q6H PRN #15 tab PRN Reason: sever pain Cyclobenzaprine [Flexeril] 10 mg PO TID PRN #30 tablet PRN Reason: Muscle Spasm Naproxen [Naprosyn TAB] 500 mg PO BID PRN #30 tablet PRN Reason: pain Referrals: AARON MARSHALL MD [Referring] - 3-5 Days Forms: Work/School Release Form(ED) Time of Disposition: 23:44
[2017-10-26] MEDS ORDERED: NORCO 5/325 PO ONE (23:23)
== END 2017-10-26 23:55 | disposition home or self-care (01) ==
LOC: ED 19:25
DX: S16.1XXA Strain of muscle, fascia and tendon at neck level, initial encounter (principal); M47.812 Spondylosis without myelopathy or radiculopathy, cervical region; M50.20 Other cervical disc displacement, unspecified cervical region; J45.909 Unspecified asthma, uncomplicated; F17.200 Nicotine dependence, unspecified, uncomplicated; Z98.51 Tubal ligation status; Z79.899 Other long term (current) drug therapy; W18.39XA Other fall on same level, initial encounter; Y93.89 Activity, other specified; Y99.8 Other external cause status; Y92.098 Other place in other non-institutional residence as the place of occurrence of the external cause
CPT/HCPCS: 70450; 72125; 81025